=== PATIENT | male | born 1945 | race Caucasian/White ===

== ENCOUNTER → 2020-05-18 | Outpatient (CLI) | payer MEDICARE ==
[~2020-05-18] MED LIST: GASTROGRAFIN SOLUTION 30ML (Q9963) As Ordered ONE; ISOVUE-370 76% 100ML VIAL As Ordered ONE; LISI-898 PO
--- NOTE | 2020-05-19 08:07 | REP ---
INDICATION: MALIGNANT NEOPLASM OF THE COLON. COMPARISON: None. TECHNIQUE: Chest CT with IV contrast. FINDINGS: There are 4 lung nodules, 3 in the right lung and 1 in the left lung, compatible with metastases. The largest is in the medial segment of the right middle lobe on image 75 measuring 10 mm. There are no infiltrates or pleural effusions. There is an enlarged right hilar node measuring up to 1.4 cm short axis. There is no left hilar lymph node enlargement. There is no mediastinal lymph node enlargement. There is no axillary lymphadenopathy. The thoracic aorta is unremarkable. Cardiac size is normal. There is calcified atheroma in the coronary arteries. There are hypodensities in the liver compatible with metastases. IMPRESSION: Lung nodules as described, compatible with pulmonary metastases. Enlarged right hilar node. Hypodensities in the liver compatible with metastases. <Electronically signed by Aris Anderson > 05/19/20 [id number]
--- NOTE | 2020-05-19 08:29 | REP ---
INDICATION: MALIGNANT NEOPLASM OF THE COLON. COMPARISON: None. TECHNIQUE: Abdomen/pelvis CT with IV and bowel contrast. After IV contrast there is a media and delayed scanning. FINDINGS: There are multiple hepatic hypodensities compatible with hepatic metastases. The largest is posterior in the right lobe of the liver measuring 5.6 cm. The gallbladder, pancreas and spleen are normal size and unremarkable. The adrenals are unremarkable. The right kidney is unremarkable. 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 There is a left ureteral stent with the proximal pigtail in the left renal pelvis. The proximal shaft of the stent is looped in the extrarenal pelvis. The distal pigtail is partially within the wall of the bladder partially within the bladder lumen. There is a large pelvic mass adjacent to the bladder dome and along the left bladder wall compatible with neoplasm, likely resulting in distal left ureteral obstruction. It may have invaded the bladder wall resulting in bladder wall thickening. The abdominal aorta is unremarkable. There is no periaortic adenopathy or mass. There is no bowel distention or obstruction. There is a left lower quadrant colostomy. Pelvis: There is a large soft tissue mass above the dome of the pelvis and extending into the pelvis on the left. There is no intraluminal contrast in the colon and I am unable to differentiate colon loops from the mass on the basis of this scan. However, there is wall thickening of the bladder dome and left lateral wall of the bladder suggestive of tumor bladder wall invasion. There is no ascites. There are no lytic, blastic or destructive skeletal lesions. IMPRESSION: There are hypodensities in the hepatic parenchyma as described, compatible with metastases. There is a pelvic mass on the left likely resulting in distal left ureteral obstruction. There is a left ureteral stent and left renal hydronephrosis. There is bladder wall thickening over the dome of the bladder along the left lateral wall bladder, possibly from direct tumor invasion. Left lower quadrant colostomy. No bowel distention or obstruction. No ascites. <Electronically signed by Aris Anderson > 05/19/20 [id number]
== END ==
LOC: M RAD 15:52
PROVIDERS: ATTEND Internal Medicine Hematology & Oncology
DX: C18.9 Malignant neoplasm of colon, unspecified (principal)
CPT/HCPCS: 71260; 74177; Q9963; Q9967

== ENCOUNTER → 2020-05-22 | Outpatient (CLI) | payer MEDICARE ==
[~2020-05-22] MED LIST changes: -GASTROGRAFIN SOLUTION 30ML (Q9963) As Ordered ONE; -ISOVUE-370 76% 100ML VIAL As Ordered ONE
--- NOTE | 2020-05-24 10:53 | REP ---
INDICATION: INITIAL STAGING COLON CANCER. Advanced unresectable: Malignancy at the level of the sigmoid colon with liver metastasis. There is a prior history of prostate cancer. 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 COMPARISON: Comparison CT study chest abdomen pelvis 18 May 2020.. TECHNIQUE: Approximately 45 minutes following the intravenous injection of a 17.27 mCi dose of F-18 FDG, three-dimensional PET scintigraphy is acquired from the skull base to the proximal thighs. Triplanar noncontrast CT scanning is acquired through the same anatomic range for attenuation correction, and image registration with scan parameters optimized to minimize radiation exposure to the patient. PET scintigraphy and CT datasets were fused and displayed on a workstation with multiplanar and projection display capability. FINDINGS: Head and neck soft tissues are unremarkable. In the thorax, there is hypermetabolic uptake in a 1.2 cm perihilar right upper lobe pulmonary nodule. Maximum standard uptake value is 5.86 in this nodule. Other metastatic pulmonary nodules are visible but no other hypermetabolic pulmonary parenchymal nodule is seen. Maximum standard uptake value in a lingular nodule which is subcentimeter in size is 1.26. There is visible but non hypermetabolic uptake in the right middle lobe nodule as well, 1.90. No hilar or mediastinal quinn hypermetabolic uptake is seen in the chest. Multiple hypermetabolic liver metastases are visible. The largest of these is in the posterior segment of the right upper lobe. This is also the most avid. Maximum standard uptake value in this large right posterior segment hepatic metastasis is 12.32. Standard uptake value in the other liver nodules ranges from 5.33-9.63. There appear to be 7 separate foci of hypermetabolic uptake in the liver. Hydroureteronephrosis with stent in place noted on the left. Large confluent pelvic mass shows hypermetabolic uptake with maximum standard uptake value 18.28. There is no definitely identifiable pelvic or retroperitoneal the quinn uptake or adenopathy. No abnormal skeletal uptake is appreciated. A large area of bladder wall thickening is noted as on abdominal CT study. Physiologic uptake in the urine within the bladder obscures evaluation of the bladder wall by PET scintigraphy. IMPRESSION: Bulky, confluent pelvic hypermetabolic mass consistent with sigmoid colon malignancy. There are multiple hepatic metastases and pulmonary parenchymal metastases are seen. <Electronically signed by Qamar Gottlieb > 05/24/20 [id number]
== END ==
LOC: M PLARAD 12:18
PROVIDERS: ATTEND Internal Medicine Hematology & Oncology
DX: C78.7 Secondary malignant neoplasm of liver and intrahepatic bile duct (principal); C78.01 Secondary malignant neoplasm of right lung; C18.7 Malignant neoplasm of sigmoid colon
CPT/HCPCS: 78815; A9552

== ENCOUNTER → 2020-08-02 | Outpatient (CLI) | payer MEDICARE ==
[~2020-08-02] MED LIST changes: +COVI100V IM; +DEXA4TA PO; +GASTROGRAFIN SOLUTION 30ML (Q9963) As Ordered ONE; +ISOVUE-370 76% 100ML VIAL As Ordered ONE; +PROC10TA4 PO
--- NOTE | 2020-08-02 17:09 | REP ---
INDICATION: COLON CA COMPARISON: 05/18/2020 the only prior TECHNIQUE: Standard helical technique after the intravenous administration of 100 cc Isovue 370 FINDINGS: There is stable appearing right hilar adenopathy. No mediastinal or left hilar adenopathy has developed. There are no pleural or pericardial effusions. The imaged upper abdomen again shows a patent metastasis. There is no significant change in appearance of the imaged osseous structures. Evaluation of the lung hodges shows all pulmonary nodule seen previously to have gotten significantly smaller. No new abnormal nodules, masses, or opacities have developed. IMPRESSION: 1. Improved lung field findings as described above. 2. Stable adenopathy. 3. Evidence of hepatic metastasis which also appears to have improved but incompletely imaged on this chest CT. <Electronically signed by Tim Amor > 08/02/20 [id number]
--- NOTE | 2020-08-02 17:20 | REP ---
INDICATION: COLON CA. Assessment post chemotherapy. COMPARISON: Comparison CT study is reviewed from May 18, 2020. Comparison is made with PET-CT findings from May 22, 2020.. TECHNIQUE: Helical scanning is acquired and 3 mm axial images re-formatted. Coronal and sagittal MPR images are generated. The CT contrast enhancement dose is 100 mL of intravenous Isovue 370. Oral contrast was also administered. FINDINGS: Digital preliminary photography teacher radiograph demonstrates a left ureteral stent in place and a normal bowel gas pattern. The study again demonstrates multiple liver mass lesions consistent with metastases. These are smaller in size than they were on May 18, 2020. The largest of these currently measures 4.2 cm in greatest diameter, previously 5.6 cm. No new hepatic metastasis is appreciated. Nose focal splenic lesion is seen. No adrenal mass is seen. No pancreatic or gallbladder abnormality is observed. There is moderate hydronephrosis and hydroureter despite the presence of an appropriately placed double-pigtail ureteral stent. This is unchanged. Previously noted sigmoid colon/para colonic mass in the pelvis appears smaller and somewhat less extensive as well. a bulky somewhat necrotic appearing component of this mass measured 4.4 cm previously. This area today measures 2.8 cm. The prostate is enlarged unchanged. No new mass or adenopathy is seen. No free fluid is noted. No bony destructive lesion. IMPRESSION: Partial response findings as above with some decrease in the size of previously noted liver metastases and interval slight decrease in the size of pericolonic mass adjacent to the sigmoid colon in the pelvis. Moderate left-sided hydronephrosis persists despite ureteral stent. <Electronically signed by Qamar Gottlieb > 08/02/20 [id number]
== END ==
LOC: M RAD 15:10
PROVIDERS: ATTEND Internal Medicine Hematology & Oncology
DX: C18.9 Malignant neoplasm of colon, unspecified (principal)
CPT/HCPCS: 71260; 74177; Q9963; Q9967

== ENCOUNTER → 2020-08-25 | Outpatient (REF) | payer MEDICARE ==
[~2020-08-25] MED LIST changes: -GASTROGRAFIN SOLUTION 30ML (Q9963) As Ordered ONE; -ISOVUE-370 76% 100ML VIAL As Ordered ONE; +LIDO1CRE42 TOP
[2020-08-25 14:30] LABS: APPEARANCE, URINE CLOUDY (CLEAR); BACTERIA, URINE AUTO NEGATIVE (NEGATIVE); BILIRUBIN, URINE AUTO NEGATIVE (NEGATIVE); BLOOD, URINE BLOOD 3+ (NEGATIVE); CALCIUM OXALATE CRYSTALS SMALL; COLOR, URINE YELLOW (YELLOW); GLUCOSE, URINE (UA) AUTO 1+ mg/dL (NEGATIVE); KETONE, URINE AUTO NEGATIVE (NEGATIVE); LEUKOCYTE ESTERASE, URINE AUTO NEGATIVE (NEGATIVE); MUCUS, URINE SMALL (NEGATIVE); NITRITE, URINE AUTO NEGATIVE (NEGATIVE); PROTEIN, URINE AUTO 2+ mg/dL (NEGATIVE); RBC, URINE AUTO TNTC /HPF (0-3); SPECIFIC GRAVITY URINE AUTO 1.018 (1.002-1.035); SQUAMOUS EPITHELIAL CELL UR AU 0 /HPF (0-6); UROBILINOGEN, URINE AUTO 0.2 mg/dL (0.0-2.0); WBC, URINE AUTO 13 /HPF (0-3)
[2020-08-25 14:40] LABS: URINE TOTAL PROTEIN 72.4 MG/DL (0-12)
[2020-08-25 17:50] LABS: TOTAL VOLUME, URINE 1250 ML
== END ==
LOC: M LAB REF 13:55
PROVIDERS: ATTEND Internal Medicine
DX: C18.7 Malignant neoplasm of sigmoid colon (principal)

== ENCOUNTER → 2020-10-05 | Outpatient (REF) | payer MEDICARE ==
[2020-10-06 14:28] LABS: URINE TOTAL PROTEIN 103.9 MG/DL (0-12)
[2020-10-06 20:13] LABS: TOTAL PROTEIN 24 HOUR URINE 1142.9 MG/24HR (50-150)
== END ==
LOC: M LAB REF 12:56
PROVIDERS: ATTEND Internal Medicine Hematology & Oncology
DX: C61 Malignant neoplasm of prostate (principal); C18.9 Malignant neoplasm of colon, unspecified; C67.9 Malignant neoplasm of bladder, unspecified

== ENCOUNTER → 2020-10-24 | Outpatient (CLI) | payer MEDICARE ==
[~2020-10-24] MED LIST changes: +GASTROGRAFIN SOLUTION 30ML (Q9963) As Ordered ONE; +ISOVUE-370 76% 100ML VIAL As Ordered ONE; +POTA20TA6 PO
--- NOTE | 2020-10-24 16:02 | REP ---
INDICATION: COLON CA COMPARISON: Multiple the latest 08/02/2020 TECHNIQUE: Standard helical technique after the intravenous administration of 100 cc Isovue 370 FINDINGS: The mediastinum and pulmonary gloria are unchanged. There are no pleural effusions. There is slight anterior pericardial thickening or small amount of pericardial fluid. There is no significant change in appearance of the imaged osseous structures. Evaluation of the lung hodges shows the 5 mm size nodule seen previously in the lingula to a gotten smaller. Today this measures 4 mm. The 4 mm size nodule seen previously in the right lower lobe has completely resolved. A 6 mm size nodule seen in the medial aspect of the right middle lobe has also gotten smaller. Today this measures 4 mm. No new abnormal nodules, masses, or opacities have developed. IMPRESSION: 1. Improved lung field findings as described above. 2. Other findings as described above. <Electronically signed by Tim Amor > 10/24/20 [id number]
--- NOTE | 2020-10-24 16:22 | REP ---
INDICATION: COLON CA COMPARISON: 08/02/2020. TECHNIQUE: CT Scan of the abdomen and pelvis was performed with intravenous administration of 100 cc of Isovue 370, and oral contrast. Sagittal and coronal reconstruction images are performed. FINDINGS: Liver: There is continued improvement of previously identified metastatic lesions in the liver. The largest lesion is again seen inferiorly in the posterior segment of the right lobe. Current measurements are proximally 3.1 x 3.2 cm, on the most recent prior study diameter was approximately 4.0 x 4.6 cm. There is a vague 1 cm lesion more superiorly in the right lobe essentially unchanged. There is a barely perceptible subcentimeter lesion adjacent to the gallbladder fossa in the right lobe anterior segment. At the dome there is a small linear hypodensity at the site of a prior nodule. No new lesions are seen. Gallbladder: Unremarkable. Spleen: Normal. Adrenals: Normal. Pancreas: Normal. Kidneys: Subcentimeter renal cysts are again seen. There is a left ureteral stent. There is dilatation of the left renal pelvis which has decreased since the prior study. Small and large bowel: A left colostomy is again noted. Mass density above the dome of the bladder involving the sigmoid colon appears essentially unchanged measuring approximately 3.3 x 4.9 cm. There is an adjacent left paracolic mass with somewhat irregular ill-defined margins which has decreased in size since the prior studies. Current measurements are approximately 3.5 x 2.2 cm, on the most recent prior study I estimate the measurements to be about 3.9 x 3.0 cm. Free fluid: None. Abdominal aorta: No aneurysm or dissection. Adenopathy: None. Appendix: Not inflamed. Osseous structures: There are degenerative changes of the spine without compression deformity. Pelvis: The urinary bladder is collapsed and contains the distal end of the left ureteral stent. The prostate is enlarged. IMPRESSION: Continued improvement of metastatic disease of the liver as discussed above. No new liver lesions. Continued decrease in size of left paracolic mass the pelvis. Moderate left hydronephrosis has improved, with a left ureteral stent in place. <Electronically signed by Aris Joe > 10/24/20 [id number]
== END ==
LOC: M RAD 13:15
PROVIDERS: ATTEND Internal Medicine Hematology & Oncology
DX: C18.9 Malignant neoplasm of colon, unspecified (principal)
CPT/HCPCS: 71260; 74177; Q9963; Q9967

== ENCOUNTER → 2021-08-06 | Outpatient (CLI) | payer MEDICARE ==
[~2021-08-06] MED LIST changes: -GASTROGRAFIN SOLUTION 30ML (Q9963) As Ordered ONE; -ISOVUE-370 76% 100ML VIAL As Ordered ONE; -LISI-898 PO; +LISI5TAB11 PO; +MAGICMW SSP; +Magic Mouthwash; +POTA-151 PO; -POTA20TA6 PO; -PROC10TA4 PO; +PROC10TA5 PO
== END ==
LOC: M PLARAD 10:40
PROVIDERS: ATTEND Internal Medicine Hematology & Oncology
DX: C18.7 Malignant neoplasm of sigmoid colon (principal)
CPT/HCPCS: 78815; A9552

== ENCOUNTER → 2021-11-21 | Outpatient (CLI) | payer MEDICARE ==
[~2021-11-21] MED LIST changes: +GASTROGRAFIN SOLUTION 30ML (Q9963) As Ordered ONE; +ISOVUE-370 76% 100ML VIAL As Ordered ONE
== END ==
LOC: M RAD 14:31
PROVIDERS: ATTEND Nurse Practitioner
DX: C18.9 Malignant neoplasm of colon, unspecified (principal); Z93.3 Colostomy status
CPT/HCPCS: 71260; 74177; Q9963; Q9967

== ENCOUNTER → 2022-09-02 | Outpatient (CLI) | payer MEDICARE, BC ==
[~2022-09-02] MED LIST changes: -GASTROGRAFIN SOLUTION 30ML (Q9963) As Ordered ONE; -ISOVUE-370 76% 100ML VIAL As Ordered ONE; -LIDO1CRE42 TOP; +LIDO30CR18 TOP; +LONS0.27 PO
== END ==
LOC: M RAD 12:58
PROVIDERS: ATTEND Internal Medicine Medical Oncology
DX: C18.9 Malignant neoplasm of colon, unspecified (principal); Z96.0 Presence of urogenital implants; C78.01 Secondary malignant neoplasm of right lung; C78.02 Secondary malignant neoplasm of left lung

== ENCOUNTER → 2022-10-15 | Outpatient (CLI) | payer MEDICARE ==
[~2022-10-15] MED LIST changes: +ACET-683 PO; +ELIQ5TAB PO; +IBUP200C25 PO; +OXYC-517 PO; +OXYC10TA12 PO
== END ==
LOC: M RAD 14:22
PROVIDERS: ATTEND Internal Medicine Medical Oncology
DX: I82.412 Acute embolism and thrombosis of left femoral vein (principal); I82.432 Acute embolism and thrombosis of left popliteal vein; I82.442 Acute embolism and thrombosis of left tibial vein; I82.812 Embolism and thrombosis of superficial veins of left lower extremity

== ENCOUNTER → 2022-11-11 | Outpatient (REF) | payer MEDICARE ==
[~2022-11-11] MED LIST changes: +BACI1CAP PO; +CEFT2INJ4 IV; +METR-265 PO; +OXYC-673 PO
[2022-11-11 17:00] LABS: HEMATOCRIT 29.1 % (42.0-52.0); MEAN CORPUSCULAR HEMOGLOBIN 30.5 pg (27.0-33.0); MEAN CORPUSCULAR HGB CONC 30.9 g/dl (32.0-36.5); MEAN CORPUSCULAR VOLUME 98.6 fl (80.0-96.0); PLATELET COUNT, AUTOMATED 280 10^3/uL (150-450); RED BLOOD COUNT 2.95 10^6/uL (4.30-6.10); WHITE BLOOD COUNT 7.3 10^3/uL (4.0-10.0)
[2022-11-11 17:24] LABS: ALBUMIN 2.4 G/DL (3.2-5.2); ALKALINE PHOSPHATASE 186 U/L (46-116); ALT/SGPT < 9 U/L (7.0-40); AST/SGOT 22 U/L (<34); BILIRUBIN,TOTAL 0.3 MG/DL (0.3-1.2); BLOOD UREA NITROGEN 17 MG/DL (9-23); CALCIUM LEVEL 8.2 MG/DL (8.3-10.6); CARBON DIOXIDE LEVEL 26 MMOL/L (20-31); CHLORIDE LEVEL 105 MMOL/L (98-107); CREATININE FOR GFR 1.29 MG/DL (0.70-1.30); GLOMERULAR FILTRATION RATE 57.6 (>42); GLUCOSE, FASTING 90 MG/DL (74-106); POTASSIUM SERUM 4.3 MMOL/L (3.5-5.1); SODIUM LEVEL 138 MMOL/L (136-145); TOTAL PROTEIN 5.2 G/DL (5.7-8.2)
[2022-11-11 18:03] LABS: ERYTHROCYTE SEDIMENTATION RATE 49 mm/hr (0-20)
== END ==
LOC: M SHH 16:40
PROVIDERS: ATTEND Internal Medicine Infectious Disease
DX: K68.12 Psoas muscle abscess (principal)

== ENCOUNTER → 2022-11-19 | Outpatient (REF) | payer MEDICARE ==
[2022-11-19 16:05] LABS: HEMATOCRIT 31.3 % (42.0-52.0); MEAN CORPUSCULAR HEMOGLOBIN 31.7 pg (27.0-33.0); MEAN CORPUSCULAR HGB CONC 31.9 g/dl (32.0-36.5); MEAN CORPUSCULAR VOLUME 99.4 fl (80.0-96.0); PLATELET COUNT, AUTOMATED 193 10^3/uL (150-450); RED BLOOD COUNT 3.15 10^6/uL (4.30-6.10); WHITE BLOOD COUNT 5.5 10^3/uL (4.0-10.0)
[2022-11-19 16:25] LABS: ALBUMIN 2.7 G/DL (3.2-5.2); ALKALINE PHOSPHATASE 162 U/L (46-116); ALT/SGPT 17 U/L (7.0-40); AST/SGOT 22 U/L (<34); BILIRUBIN,TOTAL 0.3 MG/DL (0.3-1.2); BLOOD UREA NITROGEN 17 MG/DL (9-23); CALCIUM LEVEL 8.2 MG/DL (8.3-10.6); CARBON DIOXIDE LEVEL 27 MMOL/L (20-31); CHLORIDE LEVEL 108 MMOL/L (98-107); CREATININE FOR GFR 1.19 MG/DL (0.70-1.30); GLOMERULAR FILTRATION RATE > 60.0 (>42); GLUCOSE, FASTING 104 MG/DL (74-106); POTASSIUM SERUM 4.1 MMOL/L (3.5-5.1); SODIUM LEVEL 142 MMOL/L (136-145); TOTAL PROTEIN 5.4 G/DL (5.7-8.2)
[2022-11-19 16:28] LABS: ERYTHROCYTE SEDIMENTATION RATE 37 mm/hr (0-20)
== END ==
LOC: M LAB REF 15:45
PROVIDERS: ATTEND Internal Medicine Infectious Disease
DX: K68.12 Psoas muscle abscess (principal)

== ENCOUNTER → 2022-11-22 | Outpatient (CLI) | payer MEDICARE, BC ==
[~2022-11-22] MED LIST changes: +GASTROGRAFIN SOLUTION 30ML As Ordered ONE; +ISOVUE-370 76% 100ML VIAL As Ordered ONE
== END ==
LOC: M RAD 12:22
PROVIDERS: ATTEND Internal Medicine Infectious Disease
DX: C18.9 Malignant neoplasm of colon, unspecified (principal); C78.7 Secondary malignant neoplasm of liver and intrahepatic bile duct; C96.0 Multifocal and multisystemic (disseminated) Langerhans-cell histiocytosis; N13.30 Unspecified hydronephrosis; Z93.3 Colostomy status; C78.00 Secondary malignant neoplasm of unspecified lung; C79.89 Secondary malignant neoplasm of other specified sites
CPT/HCPCS: 74178; Q9963; Q9967